=== PATIENT | female | born 1970 | race Two or more races ===

== ENCOUNTER 2020-05-26 15:49 | Outpatient (REF) | payer OTHER, SELFPAY ==
[2020-05-26 16:36] LABS: Influenza A PCR NEGATIVE (Negative); Influenza B PCR NEGATIVE (Negative); Resp Syncy Virus RNA Qual PCR NEGATIVE (Negative); SARS COV2 PCR INHOUSE POSITIVE (Negative)
== END 2020-05-26 15:50 | disposition home or self-care (01) ==
LOC: HO.LNP 15:49
PROVIDERS: Visit Provider Internal Medicine
DX: Z20.828 Contact with and (suspected) exposure to other viral communicable diseases (principal); R05 Cough; R50.9 Fever, unspecified
CPT/HCPCS: 0241U; U0003

== ENCOUNTER 2020-06-09 15:21 | Outpatient (REF) | payer OTHER, SELFPAY ==
[2020-06-09 16:38] LABS: Influenza A PCR NEGATIVE (Negative); Influenza B PCR NEGATIVE (Negative); Resp Syncy Virus RNA Qual PCR NEGATIVE (Negative); SARS COV2 PCR INHOUSE POSITIVE (Negative)
== END 2020-06-09 15:22 | disposition home or self-care (01) ==
LOC: HO.LNP 15:21
PROVIDERS: Visit Provider Internal Medicine
DX: Z20.828 Contact with and (suspected) exposure to other viral communicable diseases (principal)
CPT/HCPCS: 0241U

== ENCOUNTER 2020-09-11 08:23 | Outpatient (REF) | payer OTHER, SELFPAY ==
--- NOTE | ~2020-09-11 | MM_ITS ---
EXAMINATION: MM SCREENING DIGITAL BREAST TOMOSYNTHESIS, BILATERAL CLINICAL INFORMATION: Screening. Asymptomatic. The lifetime risk of breast cancer based on the Tyrer-Cuzick Model is 5%. COMPARISON: Mammography: 09/06/2019, 08/31/2018, 08/02/2017, 07/20/2016 TECHNIQUE: Digital breast tomosynthesis is performed in both the craniocaudal and mediolateral oblique views along with computer-aided detection (CAD). Synthesized 2D images are generated from the tomosynthesis. FINDINGS: There are scattered areas of fibroglandular density (ACR BI-RADS breast composition Category b). There are no significant masses, abnormal calcifications, or other abnormalities. The known cyst posterior 9:00 right breast is without significant change from prior exam is decreased from more remote mammography. Parenchymal asymmetry anterior upper right breast on MLO view is stable from prior studies. MM/MM tomosynthesis screening BI IMPRESSION: No mammographic evidence of malignancy. ASSESSMENT: BI-RADS 2: Benign RECOMMENDATION: Routine annual mammography screening. This patient's information was entered into a reminder system with a target due date for their next mammogram.
== END 2020-09-11 08:24 | disposition home or self-care (01) ==
LOC: HO.MAMMO 08:23
PROVIDERS: PCP Internal Medicine; Visit Provider Internal Medicine
DX: Z12.31 Encounter for screening mammogram for malignant neoplasm of breast (principal)
CPT/HCPCS: 77063; 77067

== ENCOUNTER 2021-02-01 09:42 | Outpatient (REF) | payer OTHER, SELFPAY ==
[2021-02-01 10:07] LABS: MANUAL DIFF FLAG NO
[2021-02-01 10:16] LABS: Basophils Absolute Auto 0.1 X10*3/uL (0.0-0.2); Basophils Percent Auto 1.1 % (0-2); Eosinophils Absolute Auto 0.3 X10*3/uL (0.0-0.4); Eosinophils Percent Auto 3.6 % (0-4); Hematocrit 36.5 % (37-47); Imm Gran Abs Auto 0.02 X10*3/uL (0.00-0.03); Imm Gran Pct Auto 0.3 % (0.0-0.4); Lymphocytes Percent Auto 28.2 % (20-40); Mean Corpuscular HGB Conc 32.9 g/dl (31.0-35.0); Mean Corpuscular Hemoglobin 30.2 pg (27.0-33.0); Mean Corpuscular Volume 91.9 fL (80-98); Monocytes Absolute Auto 0.4 X10*3/uL (0.1-1.2); Monocytes Percent Auto 5.4 % (2-11); Neutrophils Absolute Auto 4.4 X10*3/uL (2.0-8.3); Neutrophils Percent Auto 61.4 % (45-73); Platelet Count 320 X10*3/uL (160-400); Red Blood Count 3.97 X10*6/uL (4.20-5.50); Red Cell Distribution Width 11.9 % (11.0-16.0); White Blood Count 7.2 X10*3/uL (4.8-10.8)
[2021-02-01 10:26] LABS: Estimated Average Glucose 151 mg/dL; Hemoglobin A1c % 6.9 %
[2021-02-01 11:06] LABS: Alanine Aminotransferase 20 U/L (0-31); Albumin Level 4.6 g/dL (3.5-5.0); Alkaline Phosphatase 82 U/L (39-117); Anion Gap 14 (12-20); Aspartate Amino Transferase 18 U/L (5-31); Bilirubin Total 0.4 mg/dL (0.0-1.0); Blood Urea Nitrogen 14 mg/dL (9-16); Calcium 9.9 mg/dL (8.4-10.2); Carbon Dioxide 24 mmol/L (22-29); Chloride 108 mmol/L (96-108); Cholesterol 177 mg/dL; Estimated Glomerular Filt Rate > 60; Glucose Fasting 95 mg/dL (60-99); HDL Cholesterol 59 mg/dL; LDL Cholesterol Calculated 99 mg/dl; Potassium 4.3 mmol/L (3.3-5.1); Sodium 142 mmol/L (135-145); Total Protein 7.8 g/dL (6.5-8.0); Triglycerides 96 mg/dL
[2021-02-01 13:54] LABS: Creatinine Urine 207.78 mg/dL; Microalbum/Creatinine Ratio Ur 7.7 ug/mg cr
== END 2021-02-01 09:43 | disposition home or self-care (01) ==
LOC: HO.10HDL 09:42
PROVIDERS: Visit Provider Internal Medicine
DX: E78.5 Hyperlipidemia, unspecified (principal); I10 Essential (primary) hypertension; E11.9 Type 2 diabetes mellitus without complications
CPT/HCPCS: 36415; 80053; 80061; 82043; 83036; 85025

== ENCOUNTER 2021-03-01 09:02 | Outpatient (REF) | payer OTHER, SELFPAY ==
[2021-03-04 15:12] LABS: HPV mRNA E6/E7 rflx Not Detected (Not Detected)
== END 2021-03-01 09:03 | disposition home or self-care (01) ==
LOC: HO.LAB 09:02
PROVIDERS: PCP Internal Medicine; Visit Provider Advanced Practice Midwife
DX: Z01.419 Encounter for gynecological examination (general) (routine) without abnormal findings (principal)
CPT/HCPCS: 87624; 88142

== ENCOUNTER 2021-08-10 10:24 | Outpatient (REF) | payer OTHER, SELFPAY ==
[2021-08-10 13:51] LABS: MANUAL DIFF FLAG NO
[2021-08-10 13:57] LABS: Basophils Absolute Auto 0.1 X10*3/uL (0.0-0.2); Basophils Percent Auto 1.5 % (0-2); Eosinophils Absolute Auto 0.2 X10*3/uL (0.0-0.4); Eosinophils Percent Auto 3.6 % (0-4); Imm Gran Abs Auto 0.01 X10*3/uL (0.00-0.03); Imm Gran Pct Auto 0.2 % (0.0-0.4); Lymphocytes Absolute Auto 1.9 X10*3/uL (1.2-4.9); Lymphocytes Percent Auto 32.7 % (20-40); Mean Corpuscular HGB Conc 32.4 g/dl (31.0-35.0); Mean Corpuscular Volume 92.5 fL (80.0-98.0); Mean Platelet Volume 12.1 fL (9.4-12.3); Monocytes Absolute Auto 0.4 X10*3/uL (0.1-1.2); Monocytes Percent Auto 6.1 % (2-11); Neutrophils Absolute Auto 3.3 x10*3/uL (2.0-8.3); Neutrophils Percent Auto 55.9 % (45-73); Platelet Count 324 X10*3/uL (160-400); White Blood Count 5.9 X10*3/uL (4.8-10.8)
[2021-08-10 14:17] LABS: Anion Gap 11 (12-20); Blood Urea Nitrogen 15 mg/dL (9-16); Calcium 9.9 mg/dL (8.4-10.2); Carbon Dioxide 26 mmol/L (22-29); Chloride 109 mmol/L (96-108); Estimated Glomerular Filt Rate > 60; Glucose Random 107 mg/dL (60-115); Potassium 4.3 mmol/L (3.3-5.1); Sodium 142 mmol/L (135-145)
[2021-08-10 14:33] LABS: Estimated Average Glucose 143 mg/dL; Hemoglobin A1c % 6.6 %
== END 2021-08-10 10:25 | disposition home or self-care (01) ==
LOC: HO.10HDL 10:24
PROVIDERS: Visit Provider Internal Medicine
DX: I10 Essential (primary) hypertension (principal); E11.9 Type 2 diabetes mellitus without complications
CPT/HCPCS: 36415; 80048; 83036; 85025

== ENCOUNTER 2021-10-09 10:28 | Outpatient (REF) | payer OTHER, SELFPAY ==
--- NOTE | ~2021-10-09 | MM_ITS ---
EXAMINATION: MM SCREENING DIGITAL BREAST TOMOSYNTHESIS, BILATERAL CLINICAL INFORMATION: Screening. Asymptomatic. The lifetime risk of breast cancer based on the Tyrer-Cuzick Model is 5%. COMPARISON: Mammography: 09/11/2020, 09/06/2019, 08/31/2018, 08/02/2017 TECHNIQUE: Digital breast tomosynthesis is performed in both the craniocaudal and mediolateral oblique views along with computer-aided detection (CAD). Synthesized 2D images are generated from the tomosynthesis. FINDINGS: There are scattered areas of fibroglandular density (ACR BI-RADS breast composition Category b). There are no significant masses, abnormal calcifications, or other abnormalities. There is no developing density or architectural abnormality. There are scattered bilateral stable calcifications. The axilla are unremarkable. The skin contours are smooth. MM/MM tomosynthesis screening BI IMPRESSION: No mammographic evidence of malignancy. ASSESSMENT: BI-RADS 2: Benign RECOMMENDATION: Routine annual mammography screening. This patient's information was entered into a reminder system with a target due date for their next mammogram.
== END 2021-10-09 10:29 | disposition home or self-care (01) ==
LOC: HO.MAMMO 10:28
PROVIDERS: PCP Internal Medicine; Visit Provider Internal Medicine
DX: Z12.31 Encounter for screening mammogram for malignant neoplasm of breast (principal)
CPT/HCPCS: 77063; 77067

== ENCOUNTER 2022-02-07 08:17 | Outpatient (REF) | payer OTHER, SELFPAY ==
[2022-02-07 08:36] LABS: MANUAL DIFF FLAG NO
[2022-02-07 08:45] LABS: Basophils Absolute Auto 0.1 X10*3/uL (0.0-0.2); Basophils Percent Auto 1.5 % (0-2); Eosinophils Absolute Auto 0.1 X10*3/uL (0.0-0.4); Eosinophils Percent Auto 2.6 % (0-4); Hemoglobin 12.3 g/dl (12.0-16.0); Imm Gran Abs Auto 0.02 X10*3/uL (0.00-0.03); Imm Gran Pct Auto 0.4 % (0.0-0.4); Lymphocytes Absolute Auto 2.3 X10*3/uL (1.2-4.9); Lymphocytes Percent Auto 42.3 % (20-40); Mean Corpuscular HGB Conc 33.2 g/dl (31.0-35.0); Mean Corpuscular Hemoglobin 29.9 pg (27.0-33.0); Mean Platelet Volume 10.9 fL (9.4-12.3); Monocytes Absolute Auto 0.4 X10*3/uL (0.1-1.2); Monocytes Percent Auto 6.9 % (2-11); Neutrophils Absolute Auto 2.5 x10*3/uL (2.0-8.3); Neutrophils Percent Auto 46.3 % (45-73); Platelet Count 338 X10*3/uL (160-400); Red Blood Count 4.11 X10*6/uL (4.20-5.50); Red Cell Distribution Width 12.4 % (11.0-16.0); White Blood Count 5.3 X10*3/uL (4.8-10.8)
[2022-02-07 09:01] LABS: Estimated Average Glucose 128 mg/dL; Hemoglobin A1c % 6.1 %
[2022-02-07 09:14] LABS: Alanine Aminotransferase 17 U/L (0-31); Albumin Level 4.8 g/dL (3.5-5.0); Alkaline Phosphatase 84 U/L (39-117); Anion Gap 14 (12-20); Aspartate Amino Transferase 19 U/L (5-31); Bilirubin Total 0.5 mg/dL (0.0-1.0); Blood Urea Nitrogen 20 mg/dL (9-16); Calcium 9.7 mg/dL (8.4-10.2); Carbon Dioxide 24 mmol/L (22-29); Chloride 109 mmol/L (96-108); Cholesterol 201 mg/dL; Estimated Glomerular Filt Rate > 60; Glucose Fasting 116 mg/dL (60-99); HDL Cholesterol 54 mg/dL; LDL Cholesterol Calculated 134 mg/dl; Potassium 4.7 mmol/L (3.3-5.1); Sodium 142 mmol/L (135-145); Total Protein 7.7 g/dL (6.5-8.0); Triglycerides 69 mg/dL
[2022-02-07 11:06] LABS: Creatinine Urine 129.81 mg/dL; Microalbum/Creatinine Ratio Ur 7.7 ug/mg cr
== END 2022-02-07 08:18 | disposition home or self-care (01) ==
LOC: HO.LAB 08:17
PROVIDERS: PCP Internal Medicine; Visit Provider Internal Medicine
DX: E11.9 Type 2 diabetes mellitus without complications (principal); I10 Essential (primary) hypertension; K21.9 Gastro-esophageal reflux disease without esophagitis; E78.5 Hyperlipidemia, unspecified
CPT/HCPCS: 36415; 80053; 80061; 82043; 83036; 85025

== ENCOUNTER 2022-09-12 10:01 | Outpatient (REF) | payer OTHER, SELFPAY ==
[2022-09-12 11:53] LABS: Alanine Aminotransferase 16 U/L (0-31); Albumin Level 4.5 g/dL (3.5-5.0); Alkaline Phosphatase 86 U/L (39-117); Anion Gap 14 (12-20); Aspartate Amino Transferase 15 U/L (5-31); Bilirubin Total 0.4 mg/dL (0.0-1.0); Blood Urea Nitrogen 18 mg/dL (9-16); Calcium 9.3 mg/dL (8.4-10.2); Carbon Dioxide 25 mmol/L (22-29); Chloride 109 mmol/L (96-108); Cholesterol 161 mg/dL; Estimated Glomerular Filt Rate > 60; Glucose Fasting 118 mg/dL (60-99); HDL Cholesterol 58 mg/dL; LDL Cholesterol Calculated 94 mg/dl; Potassium 4.9 mmol/L (3.3-5.1); Sodium 143 mmol/L (135-145); Total Protein 7.2 g/dL (6.5-8.0); Triglycerides 49 mg/dL
[2022-09-12 12:09] LABS: Estimated Average Glucose 146 mg/dL; Hemoglobin A1c % 6.7 %
== END 2022-09-12 10:02 | disposition home or self-care (01) ==
LOC: HO.10HDL 10:01
PROVIDERS: Visit Provider Internal Medicine
DX: E11.9 Type 2 diabetes mellitus without complications (principal); E78.00 Pure hypercholesterolemia, unspecified; I10 Essential (primary) hypertension
CPT/HCPCS: 36415; 80053; 80061; 83036

== ENCOUNTER 2022-09-16 12:28 | Outpatient (REF) | payer OTHER, SELFPAY ==
[2022-09-16 13:45] LABS: MANUAL DIFF FLAG NO
[2022-09-16 13:54] LABS: Basophils Absolute Auto 0.1 X10*3/uL (0.0-0.2); Basophils Percent Auto 1.3 % (0-2); Eosinophils Absolute Auto 0.2 X10*3/uL (0.0-0.4); Eosinophils Percent Auto 3.1 % (0-4); Hematocrit 37.9 % (37.0-47.0); Hemoglobin 12.5 g/dl (12.0-16.0); Imm Gran Abs Auto 0.02 X10*3/uL (0.00-0.03); Imm Gran Pct Auto 0.3 % (0.0-0.4); Lymphocytes Absolute Auto 1.9 X10*3/uL (1.2-4.9); Mean Corpuscular Hemoglobin 29.8 pg (27.0-33.0); Mean Corpuscular Volume 90.2 fL (80.0-98.0); Mean Platelet Volume 12.1 fL (9.4-12.3); Monocytes Absolute Auto 0.5 X10*3/uL (0.1-1.2); Monocytes Percent Auto 5.9 % (2-11); Neutrophils Absolute Auto 5.1 x10*3/uL (2.0-8.3); Neutrophils Percent Auto 65.4 % (45-73); Platelet Count 347 X10*3/uL (160-400); Red Cell Distribution Width 12.4 % (11.0-16.0); White Blood Count 7.8 X10*3/uL (4.8-10.8)
[2022-09-16 14:10] LABS: Estimated Average Glucose 137 mg/dL; Hemoglobin A1C 152.6586 umol/L; Hemoglobin A1c % 6.4 %
[2022-09-16 15:30] LABS: Alanine Aminotransferase 19 U/L (0-31); Albumin Level 4.6 g/dL (3.5-5.0); Alkaline Phosphatase 81 U/L (39-117); Anion Gap 14 (12-20); Aspartate Amino Transferase 19 U/L (5-31); Bilirubin Total 0.3 mg/dL (0.0-1.0); Blood Urea Nitrogen 15 mg/dL (9-16); Calcium 9.8 mg/dL (8.4-10.2); Carbon Dioxide 24 mmol/L (22-29); Chloride 105 mmol/L (96-108); Estimated Glomerular Filt Rate > 60; Glucose Random 186 mg/dL (60-115); Potassium 4.3 mmol/L (3.3-5.1); Sodium 139 mmol/L (135-145); Total Protein 7.4 g/dL (6.5-8.0)
[2022-09-16 15:34] LABS: Vitamin B12 349 pg/mL (200-900)
== END 2022-09-16 12:29 | disposition home or self-care (01) ==
LOC: HO.10HDL 12:28
PROVIDERS: Visit Provider Internal Medicine
DX: Z13.89 Encounter for screening for other disorder (principal)
CPT/HCPCS: 36415; 80053; 82607; 83036; 85025

== ENCOUNTER 2022-09-19 13:05 | Outpatient (REF) | payer OTHER, SELFPAY ==
[2022-09-19 14:38] LABS: Creatinine Urine 44.28 mg/dL; Microalbum/Creatinine Ratio Ur 20.3 ug/mg cr
== END 2022-09-19 13:06 | disposition home or self-care (01) ==
LOC: HO.10HDLNP 13:05
PROVIDERS: Visit Provider Internal Medicine
DX: Z00.00 Encounter for general adult medical examination without abnormal findings (principal); E11.9 Type 2 diabetes mellitus without complications; I10 Essential (primary) hypertension
CPT/HCPCS: 82043

== ENCOUNTER 2022-10-14 13:17 | Outpatient (REF) | payer OTHER, SELFPAY ==
--- NOTE | ~2022-10-14 | MM_ITS ---
EXAMINATION: MM SCREENING DIGITAL BREAST TOMOSYNTHESIS, BILATERAL CLINICAL INFORMATION: Screening. Asymptomatic. The lifetime risk of breast cancer based on the Tyrer-Cuzick Model is 6%. COMPARISON: Mammography: 10/09/2021, 09/11/2020, 09/06/2019 TECHNIQUE: Digital breast tomosynthesis is performed in both the craniocaudal and mediolateral oblique views along with computer-aided detection (CAD). Synthesized 2D images are generated from the tomosynthesis. FINDINGS: There are scattered areas of fibroglandular density (ACR BI-RADS breast composition Category b). There are no significant masses, abnormal calcifications, or other abnormalities. No architectural abnormality or developing density or significant change from prior studies. The axilla are unremarkable. MM/MM tomosynthesis screening BI IMPRESSION: No mammographic evidence of malignancy. ASSESSMENT: BI-RADS 1: Negative RECOMMENDATION: Routine annual mammography screening. This patient's information was entered into a reminder system with a target due date for their next mammogram.
== END 2022-10-14 13:18 | disposition home or self-care (01) ==
LOC: HO.MAMMO 13:17
PROVIDERS: PCP Internal Medicine; Visit Provider Internal Medicine
DX: Z12.31 Encounter for screening mammogram for malignant neoplasm of breast (principal)
CPT/HCPCS: 77063; 77067

== ENCOUNTER 2023-05-16 09:16 | Outpatient (REF) | payer OTHER, SELFPAY ==
[2023-05-16 10:40] LABS: MANUAL DIFF FLAG NO
[2023-05-16 10:51] LABS: Basophils Absolute Auto 0.1 X10*3/uL (0.0-0.2); Basophils Percent Auto 1.6 % (0-2); Eosinophils Absolute Auto 0.2 X10*3/uL (0.0-0.4); Eosinophils Percent Auto 2.9 % (0-4); Hematocrit 36.8 % (37.0-47.0); Hemoglobin 11.9 g/dl (12.0-16.0); Imm Gran Abs Auto 0.02 X10*3/uL (0.00-0.03); Imm Gran Pct Auto 0.3 % (0.0-0.4); Lymphocytes Absolute Auto 1.8 X10*3/uL (1.2-4.9); Lymphocytes Percent Auto 29.8 % (20-40); Mean Corpuscular HGB Conc 32.3 g/dl (31.0-35.0); Mean Corpuscular Hemoglobin 30.5 pg (27.0-33.0); Mean Corpuscular Volume 94.4 fL (80.0-98.0); Mean Platelet Volume 11.1 fL (9.4-12.3); Monocytes Absolute Auto 0.4 X10*3/uL (0.1-1.2); Monocytes Percent Auto 6.4 % (2-11); Neutrophils Absolute Auto 3.6 x10*3/uL (2.0-8.3); Platelet Count 307 X10*3/uL (160-400); Red Cell Distribution Width 12.7 % (11.0-16.0); White Blood Count 6.1 X10*3/uL (4.8-10.8)
[2023-05-16 11:00] LABS: Estimated Average Glucose 108 mg/dL; Hemoglobin A1c % 5.4 % (<6.0)
[2023-05-16 11:11] LABS: Alanine Aminotransferase 8 U/L (0-31); Albumin Level 4.4 g/dL (3.5-5.0); Alkaline Phosphatase 73 U/L (39-117); Anion Gap 13 (12-20); Aspartate Amino Transferase 12 U/L (5-31); Bilirubin Total 0.3 mg/dL (0.0-1.0); Blood Urea Nitrogen 19 mg/dL (9-16); Calcium 9.3 mg/dL (8.4-10.2); Carbon Dioxide 25 mmol/L (22-29); Chloride 109 mmol/L (96-108); Estimated Glomerular Filt Rate > 60; Glucose Random 86 mg/dL (60-115); Potassium 4.3 mmol/L (3.3-5.1); Sodium 143 mmol/L (135-145); Total Protein 7.5 g/dL (6.5-8.0)
[2023-05-16 12:09] LABS: Creatinine Urine 141.18 mg/dL; Microalbum/Creatinine Ratio Ur 4.9 ug/mg cr (<30)
== END 2023-05-16 09:17 | disposition home or self-care (01) ==
LOC: HO.10HDL 09:16
PROVIDERS: Visit Provider Internal Medicine
DX: E11.9 Type 2 diabetes mellitus without complications (principal); I10 Essential (primary) hypertension; M19.90 Unspecified osteoarthritis, unspecified site
CPT/HCPCS: 36415; 80053; 82043; 82570; 83036; 85025

== ENCOUNTER 2023-05-30 09:01 | Outpatient (AMB) | payer OTHER, SELFPAY ==
--- NOTE | 2023-05-30 09:09 | MHC.OFFVIS ---
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 She is doing well with no concerns. Attempting to eat a healthy diet with calcium and vitamin D and stays active with exercise. Currently sexually active. Occasional vaginal dryness, no irritation. Last pap smear; UTD. Last mammogram; Colonoscopy is UTD. Denies any family history of breast, ovarian or colon cancer. 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 Sexually active: Yes Sexual orientation: Straight/Heterosexual Gender identity: Female Female Reproductive History Menstrual Menopause type: natural Total pregnancies: 3 Full term: 3 Number of Living Children: 3 Date of last pap smear: 03/01/21 (neg pap and hpv) Date of Mammogram: 10/14/22 (Birad 1) Review of Systems Const All systems reviewed & are unremarkable except as noted in HPI and below Reports as per HPI Eyes Reports no additional complaints ENT Reports no additional complaints Card Reports no additional complaints Resp Reports no additional complaints GI Reports as per HPI and Reports no additional complaints Reports as per HPI Musc Reports no additional complaints Skin/Breast Reports as per HPI Neuro Reports no additional complaints Psych Reports no additional complaints Endo Reports no additional complaints Valdo/Lymph Reports no additional complaints Aller/Immun Reports no additional complaints Physical Exam Vital Signs: Last Vital Signs BP 106/66 05/30/23 09:12 BMI result Body Mass Index 23.4 Const General: cooperative, healthy appearing, no acute distress, well developed and alert Orientation/consciousness: patient oriented x3 HEENT Head: Yes normal to inspection Eyes General: appearance normal, both eyes and all related structures Neck Neck: Yes normal visual inspection Thyroid: Thyroid normal Chest Chest palpation & inspection: normal inspection of the chest and other (no puckering, dimpling, peau de orange, retraction, discharge, masses) Breast/axilla inspection: normal inspection of the breasts Breast/axilla palpation: normal palpation of the breasts Resp Effort & Inspection: normal respiratory effort GI Inspection: Yes normal to inspection Palpation (GI): Soft to palpation Rectal Exam - Female: deferred General: Yes bladder normal to palpation External Female Exam: normal external appearance and normal appearance of the urethra Speculum Exam - Vagina: normal appearance of the vagina, normal palpation, normal vaginal discharge and vagina atrophic Speculum Exam - Cervix: normal appearance of the cervix and normal palpation Bimanual exam- vagina & uterus: normal bimanual exam, normal palpation, uterine size normal, bladder normal to palpation, normal palpation and non-tender Bimanual Exam- Adnexa, other: no masses Skin General skin exam: no rashes or lesions noted Rashes: no rashes Neuro General: patient oriented x3 Cognition (Neuro): normal cognition Extrem General: Yes normal to inspection Psych Attitude: cooperative Thought process: Normal thought process present Assessment & Plan Assessment & Plan (1) Well female exam without gynecological exam: Code(s): Z00.00 - Encounter for general adult medical examination without abnormal findings Plan Discussed: Current recommendations for pap smears per ASCCP guidelines. Breast awareness, periodic self breast exams and yearly mammogram. Maintain a healthy lifestyle, well balanced diet including Calcium 1,200 mg and Vitamin D 600 IU daily, and routine exercise. Contact the office with any postmenopausal bleeding. Replen's moisturizer use. Atrophic changes. All of her questions and concerns were addressed to the best of my ability. RTO in 1 year for annual obstetrics gynecology physician exam. Coding Level of Care Code Est Pt Prev Care 40-64y(03019) Diagnoses Well female exam without gynecological exam Z00.00
[2023-05-30 09:12] VITALS: BP 106/66; BMI 23.4
== END 2023-05-30 09:45 | disposition home or self-care (01) ==
PROVIDERS: Visit Provider Advanced Practice Midwife
DX: Z01.419 Encounter for gynecological examination (general) (routine) without abnormal findings (principal)
CPT/HCPCS: 99396

== ENCOUNTER → 2023-05-30 09:01 | Outpatient (BNVA) | payer OTHER, SELFPAY | PROVIDERS: Visit Provider Advanced Practice Midwife ==

== ENCOUNTER 2023-10-19 11:21 | Outpatient (REF) | payer OTHER, SELFPAY | END 2023-10-19 11:22 | disposition home or self-care (01) | LOC: HO.MAMMO 11:21 | PROVIDERS: PCP Internal Medicine; Visit Provider Internal Medicine | DX: Z12.31 Encounter for screening mammogram for malignant neoplasm of breast (principal) | CPT/HCPCS: 77063; 77067 ==

== ENCOUNTER → 2023-10-19 11:45 | Outpatient (BNV) | payer OTHER, SELFPAY | PROVIDERS: PCP Internal Medicine; Visit Provider Radiology Diagnostic Radiology | DX: Z12.31 Encounter for screening mammogram for malignant neoplasm of breast (principal) | CPT/HCPCS: 77063; 77067 ==

== ENCOUNTER 2024-03-27 08:15 | Outpatient (REF) | payer OTHER, SELFPAY ==
[2024-03-27 08:31] LABS: MANUAL DIFF FLAG NO
[2024-03-27 09:34] LABS: Basophils Absolute Auto 0.1 X10*3/uL (0.0-0.2); Basophils Percent Auto 1.4 % (0-2); Eosinophils Absolute Auto 0.2 X10*3/uL (0.0-0.4); Eosinophils Percent Auto 2.8 % (0-4); Hematocrit 34.3 % (37.0-47.0); Hemoglobin 11.6 g/dl (12.0-16.0); Imm Gran Abs Auto 0.01 X10*3/uL (0.00-0.03); Imm Gran Pct Auto 0.2 % (0.0-0.4); Lymphocytes Absolute Auto 1.7 X10*3/uL (1.2-4.9); Lymphocytes Percent Auto 28.9 % (20-40); Mean Corpuscular HGB Conc 33.8 g/dl (31.0-35.0); Mean Corpuscular Hemoglobin 30.1 pg (27.0-33.0); Mean Corpuscular Volume 89.1 fL (80.0-98.0); Monocytes Absolute Auto 0.4 X10*3/uL (0.1-1.2); Monocytes Percent Auto 6.8 % (2-11); Neutrophils Absolute Auto 3.4 x10*3/uL (2.0-8.3); Neutrophils Percent Auto 59.9 % (45-73); Platelet Count 321 X10*3/uL (160-400); Red Blood Count 3.85 X10*6/uL (4.20-5.50); Red Cell Distribution Width 12.9 % (11.0-16.0); White Blood Count 5.7 X10*3/uL (4.8-10.8)
[2024-03-27 10:14] LABS: Alanine Aminotransferase 12 U/L (0-31); Albumin Level 4.2 g/dL (3.5-5.0); Alkaline Phosphatase 60 U/L (39-117); Anion Gap 12 (12-20); Aspartate Amino Transferase 16 U/L (5-31); Bilirubin Total 0.4 mg/dL (0.0-1.0); Blood Urea Nitrogen 15 mg/dL (9-16); Calcium 9.2 mg/dL (8.4-10.2); Carbon Dioxide 26 mmol/L (22-29); Chloride 102 mmol/L (96-108); Cholesterol 246 mg/dL (<200); Estimated Glomerular Filt Rate > 60; Glucose Fasting 106 mg/dL (60-99); HDL Cholesterol 80 mg/dL (>40); LDL Cholesterol Calculated 152 mg/dL (<100); Sodium 136 mmol/L (135-145); Total Protein 7.3 g/dL (6.5-8.0); Triglycerides 74 mg/dL (<150)
[2024-03-27 10:32] LABS: Creatinine Urine 95.97 mg/dL; Microalbum/Creatinine Ratio Ur 13.5 ug/mg cr (<30)
[2024-03-27 10:40] LABS: Vitamin D 25-OH Total 46.9 ng/mL (>30)
[2024-03-27 11:26] LABS: Estimated Average Glucose 114 mg/dL; Hemoglobin A1c % 5.6 % (<6.0); Total Hemoglobin (HGBA1C) 2903.4953 umol/L
== END 2024-03-27 08:16 | disposition home or self-care (01) ==
LOC: HO.LAB 08:15
PROVIDERS: PCP Internal Medicine; Visit Provider Internal Medicine
DX: I10 Essential (primary) hypertension (principal); E11.9 Type 2 diabetes mellitus without complications; E78.5 Hyperlipidemia, unspecified
CPT/HCPCS: 36415; 80053; 80061; 82043; 82306; 82570; 83036; 85025

== ENCOUNTER 2024-06-18 08:59 | Outpatient (AMB) | payer OTHER, SELFPAY ==
--- NOTE | 2024-06-18 09:17 | MHC.OFFVIS ---
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 She is doing well with concerns: She is a spot on her back that is been itching. Currently sexually active. Denies any vaginal dryness or irritation. STI testing offered; she declined. Attempting to eat a healthy diet with calcium and vitamin D and stays active with exercise 5-7/d. Last pap smear; 2020. Last mammogram; 2023. Colonoscopy is UTD. Denies any family history of breast, ovarian or colon cancer. 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 Sexual orientation: Straight/Heterosexual Gender identity: Female Female Reproductive History Menstrual Total pregnancies: 3 Full term: 3 Date of Mammogram: 10/19/23 (bi rad 1 ) Review of Systems Const All systems reviewed & are unremarkable except as noted in HPI and below Reports as per HPI Eyes Reports no additional complaints ENT Reports no additional complaints Card Reports no additional complaints Resp Reports no additional complaints GI Reports as per HPI and Reports no additional complaints Reports as per HPI Musc Reports no additional complaints Skin/Breast Reports as per HPI Neuro Reports no additional complaints Psych Reports no additional complaints Endo Reports no additional complaints Valdo/Lymph Reports no additional complaints Aller/Immun Reports no additional complaints Physical Exam Const General: cooperative, healthy appearing, no acute distress, well developed and alert Orientation/consciousness: patient oriented x3 HEENT Head: Yes normal to inspection Eyes General: appearance normal, both eyes and all related structures Neck Neck: Yes normal visual inspection Thyroid: Thyroid normal Chest Chest palpation & inspection: normal inspection of the chest and other (no puckering, dimpling, peau de orange, retraction, discharge, masses) Breast/axilla inspection: normal inspection of the breasts Breast/axilla palpation: normal palpation of the breasts Resp Effort & Inspection: normal respiratory effort GI Inspection: Yes normal to inspection Palpation (GI): Soft to palpation Rectal Exam - Female: deferred General: Yes bladder normal to palpation External Female Exam: normal external appearance and normal appearance of the urethra Speculum Exam - Vagina: normal appearance of the vagina, normal palpation, normal vaginal discharge and vagina atrophic Speculum Exam - Cervix: normal appearance of the cervix and normal palpation Bimanual exam- vagina & uterus: normal bimanual exam, normal palpation, uterine size normal, bladder normal to palpation, normal palpation and non-tender Bimanual Exam- Adnexa, other: no masses Skin Other: Multiple nevi, 1 lesion on her back is itchy. General skin exam: no rashes or lesions noted Rashes: no rashes Neuro General: patient oriented x3 Cognition (Neuro): normal cognition Extrem General: Yes normal to inspection Psych Attitude: cooperative Thought process: Normal thought process present Assessment & Plan Assessment & Plan (1) Well female exam without gynecological exam: Code(s): Z00.00 - Encounter for general adult medical examination without abnormal findings Plan Discussed: Current recommendations for pap smears per ASCCP guidelines. Breast awareness, periodic self breast exams and yearly mammogram. Maintain a healthy lifestyle, well balanced diet including Calcium 1,200 mg and Vitamin D 600 IU daily, and routine exercise. Referral placed to Dr. Chino for skin check multiple nevi. Contact the office with any postmenopausal bleeding. Patient verbalizes understanding and agrees to the plan of care. She was given opportunity to ask questions and all questions were answered to the best of my ability. RTO in 1 year for annual circle edger exam. This note is constructed using voice recognition software. While every effort has been made to ensure accuracy, burr sander errors may have been included. Orders: Referrals Dermatology Referral L98.9 - Disorder of the skin and subcutaneous tissue, unspecified Coding Level of Care Code Est Pt Prev Care 40-64y(00264) Diagnoses Well female exam without gynecological exam Z00.00
== END 2024-06-18 09:36 | disposition home or self-care (01) ==
PROVIDERS: PCP Internal Medicine; Visit Provider Advanced Practice Midwife
DX: Z01.419 Encounter for gynecological examination (general) (routine) without abnormal findings (principal)
CPT/HCPCS: 99396

== ENCOUNTER → 2024-06-18 08:59 | Outpatient (BNVA) | payer OTHER, SELFPAY | PROVIDERS: PCP Internal Medicine; Visit Provider Advanced Practice Midwife | DX: Z00.00 Encounter for general adult medical examination without abnormal findings (principal) | CPT/HCPCS: 99396; 99459 ==

== ENCOUNTER 2024-11-01 09:27 | Outpatient (REF) | payer OTHER, SELFPAY ==
--- OUTSIDE RECORDS SUMMARY | 2024-11-01 09:39 | XMS_ITS | Clinical Summary ---
Author Organization [address] [facility] Address [address] [place] [address] Phone Care Team Providers Care Soft Sugar Cutter Name Role Phone José Miguel Posadas MD Primary Care Provider [phone] Allergies No known active allergies Medications diclofenac (Voltaren Arthritis Pain) 1 % topical gel Apply 4 g topically 2 (two) times a day. 240 g 1 11/04/19 25 Active Encounters Date Type Department Care Team Description 09/04/2024 9:15 AM EST Office Visit Orthopedic Surgery [address] [phone] Marin Noriega, DPM Plantar fascial fibromatosis (Primary Dx); Localized swelling, mass and lump, left lower limb from Last 3 Months Social History Tobacco Use Types Packs/Day Years Used Date Smoking Tobacco: Never Assessed Comments Unknown Sex and Gender Information Value Date Recorded Sex Assigned at Not on file Legal Sex Female 1:37 PM EST Gender Identity Not on file Sexual Orientation Not on file Last Filed Vital Signs Vital Sign Reading Time Taken Comments Blood Pressure - - Pulse - - Temperature - - Respiratory Rate - - Oxygen Saturation - - Inhaled Oxygen Concentration - - Weight 57.6 kg (127 lb) 09/04/2024 9:41 AM EST Height 160 cm (5' 3 ) 09/04/2024 9:41 AM EST Body Mass Index 22.5 09/04/2024 9:41 AM EST Plan of Treatment Upcoming Encounters Date Type Department Care Team ([facility] st Contact Info) Description 12/03/2024 8:15 AM EDT Office Visit Orthopedic [facility] [address] [phone] Marin Noriega, DPM [address] [facility] [address] [place] [address] Health Maintenance Due Date Last Done Comments Breast Cancer Screening 1970 DTaP,Tdap,and Td Vaccines (1 - Tdap) 02/02/1987 Hepatitis B Vaccines (1 of 3 - 19+ 3-dose series) 02/02/1987 Cervical Cancer Screening: P ap Smear 02/02/1989 Pneumococcal Vaccine: 50+ Ye ars (1 of 1 - PCV) 02/02/2018 Zoster Vaccines (1 of 2) 02/02/2018 COVID-19 Vaccine ( - 2023-2 5 season) 2024 Colorectal Cancer Screening: Colonoscopy 06/19/2024 Depression Screening 06/19/2024 HIV Screening 06/19/2024 Hepatitis C Screening 06/19/2024 Social Influencers of Health Screening 06/19/2024 Influenza Vaccine (Season Ended) 2025 HIB Vaccines Aged Out No longer eligi ble based on patient's age to complete this topic HPV Vaccines Aged Out No longer eligi ble based on patient's age to complete this topic Hepatitis A Vaccines Aged Out No long er eligible based on patient's age to complete this topic IPV Vaccines Aged Out No longer eligi ble based on patient's age to complete this topic MMR Vaccines Aged Out No longer eligi ble based on patient's age to complete this topic Meningococcal ACWY Vaccine Aged Out N o longer eligible based on patient's age to complete this topic Meningococcal B Vaccine Aged Out No l onger eligible based on patient's age to complete this topic Pneumococcal Vaccine: Pediat rics (0 to 5 Years) and At-Risk Patients (6 to 64 Years) Aged Out No longer eligible b ased on patient's age to complete this topic RSV Immunization Patients Un adore 20 months Aged Out No longer eligible b ased on patient's age to complete this topic Varicella Vaccines Aged Out No longer eligible based on patient's age to complete this topic Insurance [employer] Care Teams Soft Sugar Cutter Relationship Specialty Start Date End Date José Miguel Posadas MD [address] [place] [address] Dr Kirsten [place] PCP - General Internal Medicine 06/19/24
== END 2024-11-01 09:28 | disposition home or self-care (01) ==
LOC: HO.MAMMO 09:27
PROVIDERS: PCP Internal Medicine; Visit Provider Internal Medicine
DX: Z12.31 Encounter for screening mammogram for malignant neoplasm of breast (principal)
CPT/HCPCS: 77063; 77067

== ENCOUNTER → 2024-11-01 09:45 | Outpatient (BNV) | payer OTHER, SELFPAY | PROVIDERS: PCP Internal Medicine; Visit Provider Internal Medicine | DX: Z12.31 Encounter for screening mammogram for malignant neoplasm of breast (principal) | CPT/HCPCS: 77063; 77067 ==

== ENCOUNTER 2024-11-25 09:29 | Outpatient (REF) | payer OTHER, SELFPAY ==
--- NOTE | ~2024-11-25 | XR_ITS ---
EXAMINATION: XR ELBOW, LEFT CLINICAL INFORMATION: M25.529 - Pain in unspecified elbow COMPARISON: None available. TECHNIQUE: AP, lateral, and oblique views of the left elbow. FINDINGS: No fracture, dislocation, or suspicious bone lesion. Normal alignment. No joint effusion. The elbow joint spaces are normal. Mild spurring of the lateral epicondyle noted. No soft tissue abnormalities. XR/XR elbow LT 2V IMPRESSION: 1. No acute bony abnormalities. 2. Mild spurring of the lateral epicondyle. Electronically signed by: Liborio Husain MD 11/25/2024 11:08 AM EDT
[2024-11-25 10:28] LABS: MANUAL DIFF FLAG NO
--- OUTSIDE RECORDS SUMMARY | 2024-11-25 10:36 | XMS_ITS | Clinical Summary ---
Author Organization 175 [facility] Address 175 [place] [address] Phone Care Team Providers Care Dredge Worker Name Role Phone José Miguel Posadas MD Primary Care Provider [phone] Allergies No known active allergies Medications diclofenac (Voltaren Arthritis Pain) 1 % topical gel Apply 4 g topically 2 (two) times a day. 240 g 1 11/04/19 25 Encounters Date Type Department Care Team Description 09/04/2024 9:15 AM EST Office Visit Orthopedic Surgery [address] [phone] Marin Noriega, DPM Plantar fascial fibromatosis (Primary [...] Upcoming Encounters Date Type Department Care Team ([facility] st Contact Info) Description 12/03/2024 8:15 AM EDT Office Visit Orthopedic [facility] [address] [phone] Marin Noriega, DPM 175 [facility] [address] [place] [address] Health Maintenance Due Date Last Done Comments [...] topic Insurance [employer] Care Teams Dredge Worker Relationship Specialty Start Date End Date José Miguel Posadas MD [address] [place] [address] Dr Kirsten [place] PCP - General Internal Medicine 06/19/24
[2024-11-25 10:54] LABS: Basophils Absolute Auto 0.1 X10*3/uL (0.0-0.2); Basophils Percent Auto 1.6 % (0-2); Eosinophils Absolute Auto 0.2 X10*3/uL (0.0-0.4); Eosinophils Percent Auto 3.5 % (0-4); Hematocrit 36.6 % (37.0-47.0); Hemoglobin 12.1 g/dl (12.0-16.0); Imm Gran Abs Auto 0.01 X10*3/uL (0.00-0.03); Imm Gran Pct Auto 0.2 % (0.0-0.4); Lymphocytes Absolute Auto 2.2 X10*3/uL (1.2-4.9); Lymphocytes Percent Auto 34.7 % (20-40); Mean Corpuscular HGB Conc 33.1 g/dl (31.0-35.0); Mean Corpuscular Hemoglobin 29.7 pg (27.0-33.0); Mean Corpuscular Volume 89.7 fL (80.0-98.0); Mean Platelet Volume 10.4 fL (9.4-12.3); Monocytes Absolute Auto 0.5 X10*3/uL (0.1-1.2); Monocytes Percent Auto 7.6 % (2-11); Neutrophils Absolute Auto 3.3 x10*3/uL (2.0-8.3); Neutrophils Percent Auto 52.4 % (45-73); Platelet Count 318 X10*3/uL (160-400); Red Blood Count 4.08 X10*6/uL (4.20-5.50); Red Cell Distribution Width 12.8 % (11.0-16.0); White Blood Count 6.3 X10*3/uL (4.8-10.8)
[2024-11-25 11:00] LABS: Estimated Average Glucose 131 mg/dL; Hemoglobin A1C 142.6406 umol/L; Hemoglobin A1c % 6.2 % (<6.0)
[2024-11-25 12:19] LABS: Alanine Aminotransferase 15 U/L (0-31); Albumin Level 4.4 g/dL (3.5-5.0); Alkaline Phosphatase 65 U/L (39-117); Anion Gap 13 (12-20); Aspartate Amino Transferase 17 U/L (5-31); Bilirubin Direct 0.2 mg/dL (0.0-0.5); Bilirubin Total 0.5 mg/dL (0.0-1.0); Blood Urea Nitrogen 13 mg/dL (9-16); Calcium 9.1 mg/dL (8.4-10.2); Carbon Dioxide 25 mmol/L (22-29); Chloride 105 mmol/L (96-108); Cholesterol 230 mg/dL (<200); Estimated Glomerular Filt Rate > 60; Glucose Random 97 mg/dL (60-115); HDL Cholesterol 90 mg/dL (>40); LDL Cholesterol Calculated 124 mg/dL (<100); Potassium 3.9 mmol/L (3.3-5.1); Sodium 139 mmol/L (135-145); Total Protein 7.4 g/dL (6.5-8.0); Triglycerides 81 mg/dL (<150)
== END 2024-11-25 09:30 | disposition home or self-care (01) ==
LOC: HO.LAB 09:29
PROVIDERS: PCP Internal Medicine; Visit Provider Physician Assistant
DX: E11.9 Type 2 diabetes mellitus without complications (principal); I10 Essential (primary) hypertension; E78.00 Pure hypercholesterolemia, unspecified; M77.02 Medial epicondylitis, left elbow; Z79.84 Long term (current) use of oral hypoglycemic drugs; Z79.899 Other long term (current) drug therapy
CPT/HCPCS: 36415; 73070; 80048; 80061; 80076; 83036; 84443; 85025; 99202

== ENCOUNTER 2024-11-25 09:29 | Outpatient (AMB) | payer OTHER, SELFPAY ==
--- NOTE | 2024-11-25 09:30 | MHC.PC.OV ---
Vital Signs 11/25/24 09:38 Height 5 ft 1 in Weight 56.245 kg BMI 23.4 BP 148/90 H Respiration 14 Pulse 66 Pulse Source Pulse Oximeter Temp 97.9 F Temp Source Temporal Artery Scan Pulse Oximetry (%) 98 Oxygen Delivery Method Room Air Intake Visit Reasons: Routine - see comments Youth Director Required: No Accompanied by: Self / Same As Patient Allergies No Known Allergies Allergy (Verified 11/25/24 09:32) HPI HPI Comments History of Present Illness Details 54-year-old female with history of controlled type 2 diabetes, hypertension, hyperlipidemia presents to the office today for management of chronic conditions as well as to establish care. She is working hard to maintain her diabetes through lifestyle modification. She has been exercising regularly by walking and gardening. She is compliant with diabetic diet. She does not check her sugars but last hemoglobin A1c was 5.6%. She does continue on metformin 500 mg twice daily. She did not take her antihypertensives this morning as she needs to take them with food and wanted to come in for fasting labs. She does follow regularly with [facility] in [place] for her diabetic eye exams and has upcoming appointment on 12/17. She also follows with podiatry for diabetic foot exams at [facility] with Dr. Lehman. She has had swelling over the medial aspect of the left elbow that is uncomfortable but painful to touch. She reports the swelling worsens with activity. She has been using a roll-on numbing agent as well as Voltaren gel with some effect. She has full range of motion. ROS: General: No fevers, malaise, unintentional weight loss Cardiovascular: No chest pain, palpitations, or leg edema Respiratory: No shortness of breath, wheezing, cough MSK: No myalgia, back pain. See above Neuro: No headaches, weakness, paresthesias Skin: No rashes or lesions Constitutional - Awake and Alert, No apparent distress Eyes - PERRL Cardiovascular - S1S2, RRR, No edema Respiratory - Normal lung expansion, Normal respiratory effort, No respiratory distress, CTA bilaterally Extremities - no calf tenderness bilaterally, no swelling Musculoskeletal - L elbow- swelling overlying the medial epicondyle with overlying swelling/effusion. No overlying erythema or warmth. 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 Sexual orientation: Straight/Heterosexual Gender identity: Female Physical exam (Primary Care) Vital Signs: Last Vital Signs Temp 97.9 F 11/25/24 09:38 Pulse 66 11/25/24 09:38 Resp 14 11/25/24 09:38 BP 148/90 H 11/25/24 09:38 Pulse Ox 98 11/25/24 09:38 Oxygen Delivery Method Room Air 11/25/24 09:38 BMI result Body Mass Index 23.4 Tobacco/Smoking Status: Tobacco use Status Patient Tobacco Use Status Never used Tobacco 11/25/24 09:41 Coding Level of Care Code New Pt Level 4 (86649) Complex EM visit Add On G2211 Diagnoses Diabetes mellitus E11.9 Hypercholesteremia E78.00 Hypertension I10 Medial epicondylitis, left elbow M77.02 Assessment & Plan Assessment & Plan (1) Diabetes mellitus: Code(s): E11.9 - Type 2 diabetes mellitus without complications Category: Medical Plan: Previously well controlled with hgb A1c 5.6%. Update hgb a1c today. Continue metformin 500mg ER BID. Continue with diabetic diet and regular exercise. Continue with annual eye exams with upcoming appointment 12/17. Requested notes be sent to the office. Continue following with Dr. Lopez for diabetic foot exams. (2) Hypercholesteremia: Code(s): E78.00 - Pure hypercholesterolemia, unspecified Category: Medical Plan: Fasting lipid panel ordered. Continue Zetia and low-fat diet. She is no longer taking atorvastatin, showed LDL elevated again, will need to discuss re-initiation of statin (3) Hypertension: Code(s): I10 - Essential (primary) hypertension Category: Medical Plan: On recheck 140/86. Continue lisinopril 20 mg b.i.d. counseled on compliance. Low sodium diet (4) Medial epicondylitis, left elbow: Code(s): M77.02 - Medial epicondylitis, left elbow Category: Medical Plan: Physical exam consistent with medical epicondylitis with suspicion for effusion. XR L elbow ordered. Continue NSAIDs and exercises as she has been performing as well as those provided in the office visit. She is interested in orthopedics referral which is placed. Plan Follow up in 4 months. Labs to be completed today as well as prior to next visit. XR L elbow ordered, ortho referral placed. Orders: Orders Basic Metabolic Panel Today E11.9 - Type 2 diabetes mellitus without complications, E78.00 - Pure hypercholesterolemia, unspecified, I10 - Essential (primary) hypertension Complete Blood Count Auto Diff Today E11.9 - Type 2 diabetes mellitus without complications, E78.00 - Pure hypercholesterolemia, unspecified, I10 - Essential (primary) hypertension Liver Panel Today E11.9 - Type 2 diabetes mellitus without complications, E78.00 - Pure hypercholesterolemia, unspecified, I10 - Essential (primary) hypertension XR elbow LT 2V Today M25.529 - Pain in unspecified elbow Hemoglobin A1c Today E11.9 - Type 2 diabetes mellitus without complications, E78.00 - Pure hypercholesterolemia, unspecified, I10 - Essential (primary) hypertension Lipid Panel Today E11.9 - Type 2 diabetes mellitus without complications, E78.00 - Pure hypercholesterolemia, unspecified, I10 - Essential (primary) hypertension TSH reflex Free T4 Today E11.9 - Type 2 diabetes mellitus without complications, E78.00 - Pure hypercholesterolemia, unspecified, I10 - Essential (primary) hypertension Hemoglobin A1c 3 Months E11.9 - Type 2 diabetes mellitus without complications
[2024-11-25 09:38] VITALS: BP 148/90; PULSE 66; RESP 14; TEMP 36.6; O2SAT 98; BMI 23.4
--- OUTSIDE RECORDS SUMMARY | 2024-11-25 09:47 | XMS_ITS | Clinical Summary ---
Author Organization 175 [facility] Address [address] [place] [address] Phone Care Team Providers Care Traverse Rod Assembler Name Role Phone José Miguel Posadas MD Primary Care Provider [phone] Allergies No known active allergies Medications diclofenac (Voltaren Arthritis Pain) 1 % topical gel Apply 4 g topically 2 (two) times a day. 240 g 1 11/04/19 25 Encounters Date Type Department Care Team Description 09/04/2024 9:15 AM EST Office Visit Orthopedic Surgery [address] [phone] Marin Noriega, DPM Plantar fascial fibromatosis (Primary [...] Upcoming Encounters Date Type Department Care Team ([facility] st Contact Info) Description 12/03/2024 8:15 AM EDT Office Visit Orthopedic [facility] [address] [phone] Marin Noriega, DPM [address] [facility] [address] [place] [address] Health Maintenance Due Date Last Done Comments [...] topic Insurance [employer] Care Teams Traverse Rod Assembler Relationship Specialty Start Date End Date José Miguel Posadas MD [address] [place] [address] Dr Kirsten [place] PCP - General Internal Medicine 06/19/24
== END 2024-11-25 10:01 | disposition home or self-care (01) ==
LOC: HO.HMCHD 09:29
PROVIDERS: PCP Internal Medicine; Visit Provider Physician Assistant
DX: E11.9 Type 2 diabetes mellitus without complications (principal); E78.00 Pure hypercholesterolemia, unspecified; I10 Essential (primary) hypertension; M77.02 Medial epicondylitis, left elbow

== ENCOUNTER → 2024-11-25 10:45 | Outpatient (BNV) | payer OTHER, SELFPAY | PROVIDERS: PCP Internal Medicine; Visit Provider Radiology Diagnostic Radiology | DX: M77.12 Lateral epicondylitis, left elbow (principal) | CPT/HCPCS: 73070 ==

== ENCOUNTER 2025-03-13 10:21 | Outpatient (REF) | payer OTHER, SELFPAY ==
[2025-03-13 10:58] LABS: Hemoglobin A1C 176.9866 umol/L; Total Hemoglobin (HGBA1C) 3261.6876 umol/L
[2025-03-13 11:42] LABS: HBS Num1 1.17 mIU/mL (0-7.99); HBc Num1 0.07 S/CO (0.00-0.79); HBsAGNum1 0.53 S/CO (0.00-0.99); Hepatitis B Surface Antigen Negative (Negative); ~HepC Num1 0.07 S/CO (0.00-0.79); ~Hepatitis B Surface Antibody NONREACTIVE (Nonreactive); ~Hepatitis C Antibody Nonreactive (Nonreactive)
--- OUTSIDE RECORDS SUMMARY | 2025-03-13 11:42 | XMS_ITS | Clinical Summary ---
Author Organization 175 [facility] Address 175 [place] [address] Phone Care Team Providers Care Wood Finisher Name Role Phone José Miguel Posadas MD Primary Care Provider [phone] Allergies No known active allergies Encounters Date Type Department Care Team Description 01/15/2025 8:15 AM EDT Office Visit Orthopedic Surgery [facility] [address] [phone] Marin Noriega DPM Plantar fascial fibromatosis (Primary Dx); Verruca plantaris from Last 3 Months Social History Tobacco [...] - - Weight 57.6 kg (127 lb) 12/03/2024 8:02 AM EDT Height 160 cm (5' 2.99 ) 12/03/2024 8:02 AM EDT Body Mass Index 22.5 12/03/2024 8:02 AM EDT Plan of Treatment Upcoming Encounters Date Type Department Care Team (Late st Contact Info) Description 03/18/2025 8:15 AM EDT Office Visit Orthopedic [facility] [address] [phone] Marin Noriega DPM [address] [phone] Health Maintenance Due Date Last Done Comments Breast Cancer Screening 1970 DTaP,Tdap,and Td Vaccines (1 - Tdap) 02/02/1987 Hepatitis B Vaccines (1 of 3 - 19+ 3-dose series) 02/02/1987 Cervical Cancer Screening: P ap Smear 02/02/1989 Pneumococcal Vaccine: 50+ Ye ars (1 of 1 - PCV) 02/02/2018 Zoster Vaccines (1 of 2) 02/02/2018 COVID-19 Vaccine (1 - 2023-2 5 season) 2024 Colorectal Cancer Screening: Colonoscopy 06/19/2024 HIV Screening 06/19/2024 Hepatitis C Screening 06/19/2024 Social Influencers of Health Screening 06/19/2024 Depression Screening 07/10/2024 Influenza Vaccine (#1) 2025 HIB Vaccines Aged Out No longer [...] patient's age to complete this topic Insurance [facility] PLAN MEDICAID - [place] [facility] Care Teams Wood Finisher Relationship Specialty Start Date End Date José Miguel Posadas MD [address] [place] [address] Dr Knoxke [place] PCP - General Internal Medicine 06/19/24
[2025-03-14 18:34] LABS: Rubeola IgG (Measles) 13.50 AU/mL
[2025-03-16 08:08] LABS: TS Negative Control Passed; TS Panel A 0; TS Panel B 1; TS Positive Control Passed; TSpotTB Negative (Negative)
== END 2025-03-13 10:22 | disposition home or self-care (01) ==
LOC: HO.LAB 10:21
PROVIDERS: Visit Provider Physician Assistant
DX: E11.9 Type 2 diabetes mellitus without complications (principal); Z01.84 Encounter for antibody response examination; Z11.1 Encounter for screening for respiratory tuberculosis; Z11.59 Encounter for screening for other viral diseases
CPT/HCPCS: 36415; 83036; 86481; 86704; 86706; 86735; 86762; 86765; 86787; 86803; 87340

== ENCOUNTER 2025-03-24 07:55 | Outpatient (AMB) | payer OTHER, SELFPAY ==
--- OUTSIDE RECORDS SUMMARY | 2025-03-24 07:57 | XMS_ITS | Clinical Summary ---
Author Organization 175 [facility] Address 175 [place] [address] Phone Care Team Providers Care Auto Rental Clerk Name Role Phone José Miguel Posadas MD Primary Care Provider [phone] Allergies No known active allergies Medications atorvastatin (LIPITOR) 40 mg tablet Take 1 tablet (40 mg total) by mouth 1 (one) time each day. 5 Active ezetimibe (ZETIA) 10 mg tablet Take 1 tablet (10 mg total) by mouth 1 (one) time each day. 5 Active lisinopriL (PRINIVIL,ZESTR IL) 20 mg tablet Take 1 tablet (20 mg total) by mouth 2 (two) times a day. 5 Active metFORMIN XR (GLUCOPHAGE-XR) 500 mg 24 hr tablet Take 1 tablet (500 mg total) by mouth 2 (two) times a day. 5 Active omeprazole (PriLOSEC) [address] capsule Take 1 capsule (20 mg total) by mouth 1 (one) time each day. 5 Active fluorouraciL (Efudex) 5 % creamIndication s:Verruca plantaris Apply topically 2 (two) times a day. 40 g 5 04/29/20 Active Encounters Date Type Department Care Team Description 03/18/2025 8:15 AM EDT Office Visit Orthopedic Surgery [facility] 250 175 [facility] 250 [place] [address] Marin Noriega, DPM Plantar fascial fibromatosis (Primary Dx); Localized swelling, mass and lump, left lower limb; Verruca plantaris 01/15/2025 8:15 AM EDT Office Visit Orthopedic Surgery [place] [address] [phone] Marin Noriega DPM Plantar fascial fibromatosis (Primary [...] Care Team (Late st Contact Info) Description 04/29/2025 8:15 AM EDT Office Visit Orthopedic Surgery [place] [address] [phone] Marin Noriega DPM [address] [phone] Health Maintenance Due Date Last Done Comments Breast Cancer Screening 1968 DTaP,Tdap,and Td Vaccines (1 - Tdap) 02/02/1987 Hepatitis B Vaccines (1 of 3 - 19+ 3-dose series) 02/02/1987 Cervical Cancer Screening: P ap Smear 02/02/1989 Pneumococcal Vaccine: 50+ Ye ars (1 of 1 - PCV) 02/02/2018 Zoster Vaccines (1 of 2) 02/02/2018 Colorectal Cancer Screening: Colonoscopy 06/19/2024 HIV Screening 06/19/2024 Hepatitis C Screening 06/19/2024 Social Influencers of Health Screening 06/19/2024 Depression Screening 07/10/2024 COVID-19 Vaccine (1 - 2023-2 5 season) 2025 Influenza Vaccine (#1) 2025 HIB Vaccines Aged [...] patient's age to complete this topic Insurance [place] - [place] [facility] PL[employer] Care Teams Auto Rental Clerk Relationship Specialty Start Date End Date José Miguel Posadas MD [address] [place] [address] Dr Knoxke [place] PCP - General Internal Medicine 06/19/24
--- NOTE | 2025-03-24 08:02 | A.OFFPC_ITS ---
Vital Signs 03/24/25 08:06 03/24/25 08:23 Height 5 ft 1 in Weight 60.781 kg BMI 25.3 BP 150/90 H 148/90 H Respiration 16 Pulse 77 Pulse Source Pulse Oximeter Temp 98.5 F Pulse Oximetry (%) 99 Oxygen Delivery Method Room Air Intake Visit Reasons: 4 month f/u - see comments Parachute Marker Required: No Accompanied by: Self / Same As Patient Allergies No Known Allergies Allergy (Verified 03/24/25 08:02) HPI HPI Comments History of Present Illness Details 54-year-old female with history of contr olled type 2 diabetes, hypertension, hyperlipidemia presents to the office today for management of chronic conditions. 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 Titers were drawn and she was subtherapeutic 4 MMR and hepatitis-B. Did have vaccines performed at local pharmacy. Type 2 diabetes last A1c 7.1%. She reports she has not been as active and compliant with her diet as previously. On metformin 500 mg twice daily Hypertension-blood pressure elevated x2 in the office today on lisinopril 20 mg b.i.d. GERD-stable on PPI Hyperlipidemia-has resumed her atorvastatin 40 mg daily and Zetia Concerns: Pain in the medial aspect of the left elbow. No known injury. Intermittent for the last 1 year. No weakness or paresthesias Health maintenance: Last screening mammogram 10/2024 with 1 year follow-up advised, no evidence of m alignancy Last Pap smear 02/2021 with 5 year follow-up advised Last screen colonoscopy 01/2020, 5 year follow-up advised ROS: ROS EXAM: Constitutional - Awake and Alert, No apparent distress Eyes - PERRL Cardiovascular - S1S2, RRR, No edema Respiratory - Normal lung expansion, Normal respiratory effort, No respiratory distress, CTA bilaterally Extremities - no calf tenderness bilaterally, no swelling MSK-mild swelling over the left medial aspect of the elbow. No focal tenderness directly over the medial epicondyle. 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 Sexual orientation: Straight/Heterosexual Gender identity: Female Physical exam (Primary Care) Vital Signs: Last Vital Signs Temp 98.5 F 03/24/25 08:06 Pulse 77 03/24/25 08:06 Resp 16 03/24/25 08:06 BP 150/90 H 03/24/25 08:06 Pulse Ox 99 03/24/25 08:06 Oxygen Delivery Method Room Air 03/24/25 08:06 BMI result Body Mass Index 25.3 Tobacco/Smoking Status: Tobacco use Status Patient Tobacco Use Status Never used Tobacco 03/24/25 08:09 Coding Level of Care Code Est Pt Level 4 (96182) Complex EM visit Add On G2211 Diagnoses Diabetes mellitus E11.9 Hypercholesteremia E78.00 Hypertension I10 Left elbow pain M25.522 Assessment & Plan Assessment & Plan (1) Diabetes mellitus: Code(s): E11.9 - Type 2 diabetes mellitus without complications Category: Medical Plan: Uncontrolled. Recommend improving diet and exercise. Continue metformin twice daily. Routine eye exams (2) Hypercholesteremia: Code(s): E78.00 - Pure hypercholesterolemia, unspecified Category: Medical Plan: Lipid panel ordered. Continue atorvastatin and Zetia (3) Hypertension: Code(s): I10 - Essential (primary) hypertension Category: Medical Plan: Uncontrolled. Add amlodipine 5 mg daily. Continue lisinopril 20 b.i.d. (4) Left elbow pain: Code(s): M25.522 - Pain in left elbow Category: Medical Plan: XR of the left elbow ordered. Suspect medial epicondylitis. Referred to OT Plan Follow-up in the office in 3 weeks for blood pressure check. Labs and imaging as below Orders: Orders Lipid Panel 3 Months E11.9 - Type 2 diabetes mellitus without complications, E78.00 - Pure hypercholesterolemia, unspecified, I10 - Essential (primary) hypertension OT Evaluation and Treatment Today M25.529 - Pain in unspecified elbow, M77.02 - Medial epicondylitis, left elbow Basic Metabolic Panel 3 Months E11.9 - Type 2 diabetes mellitus without complications, E78.00 - Pure hypercholesterolemia, unspecified, I10 - Essential (primary) hypertension Hemoglobin A1c 3 Months E11.9 - Type 2 diabetes mellitus without complications, E78.00 - Pure hypercholesterolemia, unspecified, I10 - Essential (primary) hypertension XR elbow LT min 3V Today E11.9 - Type 2 diabetes mellitus without complications, E78.00 - Pure hypercholesterolemia, unspecified, I10 - Essential (primary) hypertension, M25.522 - Pain in left elbow Referrals Gastroenterology Referral M25.522 - Pain in left elbow Medications: New amlodipine 5 mg PO DAILY 90 tabs 1RF
[2025-03-24 08:06] VITALS: BP 150/90; PULSE 77; RESP 16; TEMP 36.9; O2SAT 99; BMI 25.3
[2025-03-24 08:23] VITALS: BP 148/90
== END 2025-03-24 08:26 | disposition home or self-care (01) ==
LOC: HO.HMCHD 07:55
PROVIDERS: PCP Internal Medicine; Visit Provider Physician Assistant
DX: E11.9 Type 2 diabetes mellitus without complications (principal); E78.00 Pure hypercholesterolemia, unspecified; I10 Essential (primary) hypertension; M25.522 Pain in left elbow

== ENCOUNTER → 2025-03-24 07:55 | Outpatient (BNVA) | payer OTHER, SELFPAY | PROVIDERS: PCP Internal Medicine; Visit Provider Physician Assistant | DX: E11.9 Type 2 diabetes mellitus without complications (principal); E78.00 Pure hypercholesterolemia, unspecified; I10 Essential (primary) hypertension; M25.522 Pain in left elbow; Z79.84 Long term (current) use of oral hypoglycemic drugs; Z79.899 Other long term (current) drug therapy | CPT/HCPCS: 99212 ==

== ENCOUNTER 2025-04-08 10:54 | Outpatient (AMB) | payer OTHER, SELFPAY ==
[2025-04-08 11:21] VITALS: TEMP 36.5
--- NOTE | 2025-04-08 11:21 | AM.OFFVISNUR ---
Vital Signs 04/08/25 11:21 Temp 97.7 F Intake Visit Reasons: T Dap Allergies No Known Allergies Allergy (Verified 03/24/25 08:02) Coding
--- NOTE | 2025-04-08 12:11 | AM.OFFVISNUR ---
Vital Signs 04/08/25 11:21 Temp 97.7 F Intake Visit Reasons: T Dap Allergies No Known Allergies Allergy (Verified 03/24/25 08:02) Nursing Note 55-YEAR-OLD FEMALE PRESENTING FOR TDAP VACCINATION WHICH IS REQUIRED FOR ENTRY INTO SCHOOL PROGRAM Immunizations Boostrix Tdap 2.5 Lf unit-8 mcg-5 Lf/0.5 mL intramuscular syringe Performing Provider: HUBER Marin Performing Location: [facility] [place] [facility]-10 HD Administered by: HUBER Marin on 04/08/25 11:00 Dose Route Admin Location Dispensed Lot Number Expiration Date NDC Orange Grower 0.5 mL IM Left Deltoid 0.5 mL [id number] 08/03/26 56804-328-26 [employer] Total Dispensed Waste 0.5 mL 0 % VIS Given Date VIS Provided VIS Publication Date 04/08/25 Single Vaccine 21 Eligibility Eligibility Date Funding Source Not [facility] Eligible 04/08/25 Private Assessment & Plan Assessment & Plan (1) Need for Tdap vaccination: Code(s): Z23 - Encounter for immunization Plan: ADMINISTERED, PATIENT TOLERATED WELL. PERFORMED WITH Marilee RICHARDSON PA-C Orders: Orders TDaP Immunization Today Z23 - Encounter for immunization Coding Level of Care Code Est Pt Level 1 (04170) Diagnoses Need for Tdap vaccination Z23
--- OUTSIDE RECORDS SUMMARY | 2025-04-08 12:18 | XMS_ITS | Clinical Summary ---
Author Organization 175 [facility] Address 175 [place] [address] Phone Care Team Providers Care Lunch Wagon Operator Name Role Phone José Miguel Posadas MD Primary Care Provider [phone] Allergies No known active allergies Medications atorvastatin [...] 8:15 AM EDT Office Visit Orthopedic Surgery [facility] 250 175 [facility] 250 [place] [address] Marin Noriega, DPM Plantar fascial fibromatosis (Primary Dx); Localized swelling, mass and lump, left lower limb; Verruca plantaris 01/15/2025 8:15 AM EDT Office Visit Orthopedic Surgery [place] [address] [phone] Marin Noriega DPM Plantar fascial fibromatosis (Primary [...] 8:15 AM EDT Office Visit Orthopedic Surgery [place] [address] [phone] Marin Noriega DPM [address] [phone] Health Maintenance Due Date Last Done Comments Breast Cancer Screening 1968 Colorectal Cancer Screening: Colonoscopy 1968 DTaP,Tdap,and Td Vaccines (1 - Tdap) 02/02/1987 Hepatitis B Vaccines (1 of 3 - 19+ 3-dose series) 02/02/1987 Cervical Cancer Screening: P ap Smear 02/02/1989 Pneumococcal Vaccine: 50+ Ye ars (1 of 1 - PCV) 02/02/2018 Zoster Vaccines (1 of 2) 02/02/2018 HIV Screening 06/19/2024 Hepatitis C Screening 06/19/2024 Social Influencers of Health Screening 06/19/2024 Depression Screening 07/10/2024 COVID-19 Vaccine (1 - 2023-2 5 season) 2025 Influenza Vaccine (#1) 2025 RSV Immunization Adult Patie nts (1 - 1-dose 75+ series) 02/02/2043 HIB Vaccines Aged Out No longer eligi [...] complete this topic Insurance [place] - [place] [facility] [address] [address] PLAN Care Teams Lunch Wagon Operator Relationship Specialty Start Date End Date José Miguel Posadas MD [address] [place] [address] Dr Curtis [place] PCP - General Internal Medicine 06/19/24
== END 2025-04-08 11:37 | disposition home or self-care (01) ==
LOC: HO.HMCHD 10:54
PROVIDERS: PCP Internal Medicine
DX: Z23 Encounter for immunization (principal)

== ENCOUNTER → 2025-04-08 10:54 | Outpatient (BNVA) | payer OTHER, SELFPAY | PROVIDERS: PCP Internal Medicine | DX: Z23 Encounter for immunization (principal) | CPT/HCPCS: 90471; 90715; 99211 ==

== ENCOUNTER 2025-04-14 07:59 | Outpatient (AMB) | payer OTHER, SELFPAY ==
--- NOTE | 2025-04-14 08:01 | A.OFFPC_ITS ---
Vital Signs 04/14/25 08:07 Height 5 ft 1 in Weight 60.781 kg BMI 25.3 BP 130/82 Blood Pressure Location Lt brachial Position Sitting Respiration 16 Pulse 71 Pulse Source Pulse Oximeter Temp 96.9 F Temp Source Temporal Artery Scan Pulse Oximetry (%) 97 Oxygen Delivery Method Room Air Intake Visit Reasons: bp check Saw Maker Required: No Accompanied by: Self / Same As Patient Allergies No Known Allergies Allergy (Verified 04/14/25 08:01) Medication List - Last Reconciled 04/14/25 by HUBER Marin amlodipine 5 mg PO DAILY Held on 04/14/25. Instructions: Doctor's Order aspirin 81 mg PO DAILY atorvastatin 40 mg PO DAILY blood sugar diagnostic (FreeStyle Lite Strips) As directed cholecalciferol (vitamin D3) 50 mcg PO DAILY diclofenac sodium 1% 4 grams topical BID ezetimibe (Zetia) 10 mg PO DAILY lisinopril 20 mg PO BID mecobalamin (vitamin B12) mcg PO metformin ER 500 mg PO BID omeprazole 20 mg PO DAILY PRN Tobacco use date assessed: 04/14/25 Dental Screening Dental Screen Date: 04/14/25 Did you have a dental visit in the last 12 months?: Yes Did you have a dental problem in the last 6 months where you did not have access to dental care?: No Was dental information given to patient?: Patient has dentist HPI HPI Comments History of Present Illness Details 54-year-old female with history of contr olled type 2 diabetes, hypertension, hyperlipidemia presents to the office today for blood pressure follow up Hypertension-blood pressure elevated x2 last visit. Amlodipine 5mg daily added but stopped this due to adverse side effect including fatigue. Limiting caffeine, better diet. She continues lisinopril 20mg BID with improvement in blood pressure. Blood pressure in the office today 130/82. Type 2 diabetes last A1c 7.1%. She reports she has not been as active and compliant with her diet as previously. On metformin 500 mg twice daily GERD-stable on PPI Hyperlipidemia-has resumed her atorvastatin 40 mg daily and Zetia Concerns: Pain in the medial aspect of the left elbow. No known injury. Intermittent for the last 1 year. No weakness or paresthesias . Reports still has not received referral to PT/OT Health maintenance: Last screening mammogram 10/2024 with 1 year follow-up advised, no evidence of malignancy Last Pap smear 02/2021 with 5 year follow-up advised Last screen colonoscopy 01/2020, 5 year follow-up advised-referred ROS: See HPI EXAM: Constitutional - Awake and Alert, No apparent distress Eyes - PERRL Cardiovascular - S1S2, RRR, No edema Respiratory - Normal lung expansion, Normal respiratory effort, No respiratory distress, CTA bilaterally Extremities - no calf tenderness bilaterally, no swelling MSK-mild swelling over the left medial aspect of the elbow. No focal tenderness directly over the medial epicondyle. 5/5 strength in the bilateral upper extremities Skin - Warm/Dry Neurological - Alert & oriented x3 Psychological - Appropriate affect [facility] Medical History (Updated 03/24/25 @ 08:27 by HUBER Marin) Skin lesion Hypertension Hypercholesteremia Diabetes mellitus Surgical History (Updated 11/22/24 @ 12:16 by Aye Abebe) History of colonoscopy (~01/21/20) Family History Mother Diabetes Social History Household Members: Spouse Housing: House Alcohol intake: former Patient Tobacco Use Status: Never used Tobacco e-Cigarette/Vaping Use: Never Used Current occupational status: employed 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 How often do you have a drink containing alcohol?: Monthly or less 2. How many drinks containing alcohol do you have on a typical day when you are drinking?: 1 or 2 3. How often do you have six or more drinks on one occasion?: Never Total Score: 1 Physical exam (Primary Care) Vital Signs: Last Vital Signs Temp 96.9 F 04/14/25 08:07 Pulse 71 04/14/25 08:07 Resp 16 04/14/25 08:07 BP 130/82 04/14/25 08:07 Pulse Ox 97 04/14/25 08:07 Oxygen Delivery Method Room Air 04/14/25 08:07 BMI result Body Mass Index 25.3 Tobacco/Smoking Status: Tobacco use Status Tobacco use date assessed 04/14/25 04/14/25 08:09 Patient Tobacco Use Status Never used Tobacco 04/14/25 08:03 e-Cigarette/Vaping Use Never Used 04/14/25 08:09 Coding Level of Care Code Est Pt Level 3 (28790) Complex EM visit Add On G2211 Diagnoses Hypertension I10 Assessment & Plan Assessment & Plan (1) Hypertension: Code(s): I10 - Essential (primary) hypertension Category: Medical Plan: Controlled. We will discontinue amlodipine 5 mg for now. Continue lisinopril 20 b.i.d. with lifestyle modifications as discussed in visit to continue managing blood pressure Plan Follow-up in 3-4 months with labs completed prior to visit Medications: On Hold amlodipine Hold Comment: Doctor's Order 5 mg PO DAILY 90 tabs 1RF
--- OUTSIDE RECORDS SUMMARY | 2025-04-14 08:03 | XMS_ITS | Clinical Summary ---
Author Organization 175 [facility] Address 175 [place] [address] Phone Care Team Providers Care Liquor Blender Name Role Phone José Miguel Posadas MD Primary Care Provider [phone] Allergies No known active allergies Medications atorvastatin [...] 8:15 AM EDT Office Visit Orthopedic Surgery [facility] 250 175 [facility] 250 [place] [address] Marin Noriega, DPM Plantar fascial fibromatosis (Primary Dx); Localized swelling, mass and lump, left lower limb; Verruca plantaris 01/15/2025 8:15 AM EDT Office Visit Orthopedic Surgery [place] [address] [phone] Marin Noriega DPM Plantar fascial fibromatosis (Primary [...] 8:15 AM EDT Office Visit Orthopedic Surgery [place] [address] [phone] Marin Noriega DPM [address] [phone] Health Maintenance Due Date Last Done Comments [...] complete this topic Insurance [place] - [place] [facility] PL[facility] Care Teams Liquor Blender Relationship Specialty Start Date End Date José Miguel Posadas MD [address] [place] [address] Dr Curtis [place] PCP - General Internal Medicine 06/19/24
[2025-04-14 08:07] VITALS: BP 130/82; PULSE 71; RESP 16; TEMP 36.1; O2SAT 97; BMI 25.3
== END 2025-04-14 08:22 | disposition home or self-care (01) ==
LOC: HO.HMCHD 07:59
PROVIDERS: PCP Physician Assistant; Visit Provider Physician Assistant
DX: I10 Essential (primary) hypertension (principal)

== ENCOUNTER → 2025-04-14 07:59 | Outpatient (BNVA) | payer OTHER, SELFPAY | PROVIDERS: PCP Physician Assistant; Visit Provider Physician Assistant | DX: I10 Essential (primary) hypertension (principal); E11.9 Type 2 diabetes mellitus without complications; E78.5 Hyperlipidemia, unspecified; K21.9 Gastro-esophageal reflux disease without esophagitis; Z79.84 Long term (current) use of oral hypoglycemic drugs; Z79.899 Other long term (current) drug therapy | CPT/HCPCS: 99212 ==

== ENCOUNTER 2025-06-25 09:06 | Outpatient (AMB) | payer OTHER, SELFPAY ==
--- NOTE | 2025-06-25 09:10 | MHC.OFFVIS ---
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 Currently sexually active. Denies any vaginal dryness or irritation. STI testing offered; she declined. Attempting to eat a healthy diet with calcium and vitamin D and stays active with exercise. Last pap smear; 2020, negative. Last mammogram; 2024. Colonoscopy appointment is booked. 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 Sexual orientation: Straight/Heterosexual Gender identity: Female Female Reproductive History Menstrual Age of Menarche: 8 control method: permanent sterilization Menopause type: natural Total pregnancies: 3 Number of Living Children: 3 Date of last pap smear: 03/01/21 History of abnormal pap smear: No Date of Mammogram: 11/01/24 (Bi Rad 2 Benign) Review of Systems Const All systems reviewed & are unremarkable except as noted in HPI and below Reports as per HPI Eyes Reports no additional complaints ENT Reports no additional complaints Card Reports no additional complaints Resp Reports no additional complaints GI Reports as per HPI and Reports no additional complaints Reports as per HPI Musc Reports no additional complaints Skin/Breast Reports as per HPI Neuro Reports no additional complaints Psych Reports no additional complaints Endo Reports no additional complaints Valdo/Lymph Reports no additional complaints Aller/Immun Reports no additional complaints Physical Exam Vital Signs: Last Vital Signs BP 126/76 06/25/25 09:12 BMI result Body Mass Index 24.9 Const General: cooperative, healthy appearing, no acute distress, well developed and alert Orientation/consciousness: patient oriented x3 HEENT Head: Yes normal to inspection Eyes General: appearance normal, both eyes and all related structures Neck Neck: Yes normal visual inspection Thyroid: Thyroid normal Chest Chest palpation & inspection: normal inspection of the chest and other (no puckering, dimpling, peau de orange, retraction, discharge, masses) Breast/axilla inspection: normal inspection of the breasts Breast/axilla palpation: normal palpation of the breasts Resp Effort & Inspection: normal respiratory effort GI Inspection: Yes normal to inspection Palpation (GI): Soft to palpation Rectal Exam - Female: deferred General: Yes bladder normal to palpation External Female Exam: normal external appearance and normal appearance of the urethra Speculum Exam - Vagina: normal appearance of the vagina, normal palpation, normal vaginal discharge and vagina atrophic Speculum Exam - Cervix: normal appearance of the cervix and normal palpation Bimanual exam- vagina & uterus: normal bimanual exam, normal palpation, uterine size normal, bladder normal to palpation, normal palpation and non-tender Bimanual Exam- Adnexa, other: no masses Skin General skin exam: no rashes or lesions noted Rashes: no rashes Neuro General: patient oriented x3 Cognition (Neuro): normal cognition Extrem General: Yes normal to inspection Psych Attitude: cooperative Thought process: Normal thought process present Assessment & Plan Assessment & Plan (1) Encounter for well woman exam with routine gynecological exam: Code(s): Z01.419 - Encounter for gynecological examination (general) (routine) without abnormal findings Category: Medical Plan Discussed: Current recommendations for pap smears per ASCCP guidelines. Breast awareness, periodic self breast exams and yearly mammogram. Maintain a healthy lifestyle, well balanced diet including Calcium 1,200 mg and Vitamin D 600 IU daily, and routine exercise. Contact the office with any postmenopausal bleeding. Patient verbalizes understanding and agrees to the plan of care. She was given opportunity to ask questions and all questions were answered to the best of my ability. 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 This note is constructed using voice recognition software. While every effort has been made to ensure accuracy, integration architect errors may have been included. Coding Level of Care Code Est Pt Prev Care 40-64y(28742) Diagnoses Encounter for well woman exam with routine gynecological exam Z01.419
[2025-06-25 09:12] VITALS: BP 126/76; BMI 24.9
--- OUTSIDE RECORDS SUMMARY | 2025-06-25 10:00 | XMS_ITS | Clinical Summary ---
Author Organization 175 [facility] Address [address] [place] [address] Phone Care Team Providers Care Personal Care Assistant Name Role Phone José Miguel Posadas MD Primary Care Provider [phone] Allergies No known active allergies Medications atorvastatin [...] 1 (one) time each day. 5 Active amLODIPine (NORVASC) 5 mg tablet Take 1 tablet (5 mg total) by mouth 1 (one) time each day. 5 Active fluorouraciL (Efudex) 5 % creamIndication s:Verruca plantaris Apply topically 2 (two) times a day. Apply to left foot skin lesions 40 g 3 5 06/26/20 25 Active Encounters Date Type Department Care Team Description 05/27/2025 8:15 AM EST Office Visit Orthopedic Surgery - [facility] [address] [phone] Marin Noriega DPM Plantar fascial fibromatosis (Primary Dx); Verruca plantaris 04/29/2025 8:15 AM EDT Office Visit Orthopedic [facility] [address] [phone] Marin Noriega DPM Plantar fascial fibromatosis (Primary [...] Care Team (Late st Contact Info) Description 06/26/2025 8:45 AM EST Office Visit Orthopedic [place] [address] [phone] Marin Noriega DPM [address] [phone] Health Maintenance Due Date Last Done Comments Breast Cancer Screening 1968 Colorectal Cancer Screening: Colonoscopy 1970 Hepatitis B Vaccines (1 of 3 - 19+ 3-dose series) 02/02/1987 Cervical Cancer Screening: P ap Smear 02/02/1989 Pneumococcal Vaccine: 50+ Ye ars (1 of 1 - PCV) 02/02/2018 RSV Immunization Adult Patie nts (1 - Risk 50-74 years 1-dose series) 02/02/2018 Zoster Vaccines (1 of 2) 02/02/2018 HIV Screening 06/19/2024 Hepatitis C Screening 06/19/2024 Social Influencers of Health Screening 06/19/2024 Depression Screening 07/10/2024 COVID-19 Vaccine (1 - 2024-2 6 season) 2025 Influenza Vaccine (#1) 2025 DTaP,Tdap,and Td Vaccines (2 - Td or Tdap) 04/08/2035 04/08/2025 HIB Vaccines Aged Out No longer eligi [...] complete this topic Insurance MEDICAID - [place] [facility] Care Teams Personal Care Assistant Relationship Specialty Start Date End Date José Miguel Posadas MD [address] [place] [address] Dr Kirsten MA PCP - General Internal Medicine 06/19/24
== END 2025-06-25 09:45 | disposition home or self-care (01) ==
LOC: HO.HWS 09:07
PROVIDERS: PCP Internal Medicine; Visit Provider Advanced Practice Midwife
DX: Z01.419 Encounter for gynecological examination (general) (routine) without abnormal findings (principal)
CPT/HCPCS: 99396; 99459

== ENCOUNTER → 2025-06-25 09:06 | Outpatient (BNVA) | payer OTHER, SELFPAY | PROVIDERS: PCP Internal Medicine; Visit Provider Advanced Practice Midwife | DX: Z01.419 Encounter for gynecological examination (general) (routine) without abnormal findings (principal); Z71.3 Dietary counseling and surveillance; Z71.82 Exercise counseling; Z68.24 Body mass index [BMI] 24.0-24.9, adult; Z98.51 Tubal ligation status | CPT/HCPCS: 99396 ==